=== PATIENT | female | born 1980 | race Caucasian/White ===

== ENCOUNTER 2021-03-21 05:12 | Inpatient (IN) | payer BC, SELFPAY ==
[2021-03-21] VITALS (150 sets, daily range): BP systolic 67–137; BP diastolic 40–99; PULSE 58–170; RESP 22; TEMP 36.6–37.7; O2SAT 95–100
[2021-03-21 06:08] LABS: Basophils Percent Auto 0.3 % (0.2-1.2); Eosinophils Absolute Auto 0.2 K/mm3 (0-0.3); Hematocrit 38.3 % (37.0-47.0); Hemoglobin 12.8 g/dL (12.0-15.0); Immature Granulocyte Absolute 0.05 K/mm3 (0.00-0.031); Immature Granulocyte Percent A 0.5 % (0-0.5); Lymphocytes Absolute Auto 2.42 K/mm3 (0.9-3.2); Lymphocytes Percent Auto 22.9 % (18.3-44.2); Mean Corpuscular HGB Conc 33.4 g/dl (32-36); Mean Corpuscular Hemoglobin 30.6 pg (26-34); Mean Corpuscular Volume 91.6 fl (80-100); Mean Platelet Volume 9.8 fl (7.4-10.4); Monocytes Absolute Auto 0.6 K/mm3 (0.1-0.6); Monocytes Percent Auto 5.2 % (2.6-8.5); Neutrophils Absolute Auto 7.3 K/mm3 (1.3-6.7); Neutrophils Percent Auto 69.1 % (45.5-73.1); Platelet Count Result 308 k/mm3 (150-375); Red Blood Count 4.18 M/mm3 (4.2-5.4); Red Cell Distribution Width 12.5 % (11.5-14.5); White Blood Count 10.6 K/mm3 (4.5-10.0)
--- NOTE | 2021-03-21 06:26 | P.PNAN_ITS ---
Anes - Eval Pre Procedure Procedure: labor epidural Date/Time: 03/21/21 06:26 Surgeon: savanah Preop Diagnosis: pain during labor Pre Op Diagnosis: IOL Patient Data Age: 40 Gender: F Height: 1.68 m Weight: 100 kg Last Vital Signs Pulse 79 03/21/21 05:42 BP 122/66 03/21/21 05:42 Allergies Allergy/AdvReac Type Severity Reaction Status Date / Time No Known Allergies Allergy Verified 02/27/21 14:41 Home Medications Medication Instructions Recorded Confirmed Type PNV cmb#95-ferrous fumarate-FA 1 tablet PO DAILY 02/27/21 02/27/21 History [] albuterol sulfate [Ventolin HFA] 2 puff INHALATION QID PRN 02/27/21 02/27/21 History budesonide-formoterol [Symbicort] 2 puff INHALATION DAILY 02/27/21 02/27/21 History Laboratory Tests 03/21/21 03/21/21 05:56 05:56 WBC 10.6 K/mm3 H K/mm3 (4.5-10.0) RBC 4.18 M/mm3 L M/mm3 (4.2-5.4) Hgb 12.8 g/dL g/dL (12.0-15.0) Hct 38.3 % % (37.0-47.0) MCV 91.6 fl fl (80-100) MCH 30.6 pg pg (26-34) MCHC 33.4 g/dl g/dl (32-36) RDW 12.5 % % (11.5-14.5) Plt Count 308 k/mm3 k/mm3 (150-375) MPV 9.8 fl fl (7.4-10.4) Immature Gran % (Auto) 0.5 % % (0-0.5) Neut % (Auto) 69.1 % % (45.5-73.1) Lymph % (Auto) 22.9 % % (18.3-44.2) [place] % (Auto) 5.2 % % (2.6-8.5) Eos % (Auto) 2.0 % % (0-4.4) Baso % (Auto) 0.3 % % (0.2-1.2) Lymph # (Auto) 2.42 K/mm3 K/mm3 (0.9-3.2) [place] # (Auto) 0.6 K/mm3 K/mm3 (0.1-0.6) Eos # (Auto) 0.2 K/mm3 K/mm3 (0-0.3) Baso # (Auto) 0.0 K/mm3 K/mm3 (0.0-0.1) Abs Immat Gran (auto) 0.05 K/mm3 H K/mm3 (0.00-0.031) Absolute Neuts (auto) 7.3 K/mm3 H K/mm3 (1.3-6.7) Absolute Nucleated RBC 0.0 K/mm3 K/mm3 (0.0-0.012) Nucleated RBC % 0.0 % % (0.0-0.2) RPR Pending Patient hx anesthesia problems: none Family hx anesthesia problems: none Results Review: All pre-operative results and documents have been reviewed as part of the pre-operative evaluation. [facility] Past Medical History Medical History (Updated 03/21/21 @ 06:27 by Katiana Polk CRNA) Asthma Family History Family History (Updated 02/27/21 @ 14:42 by Ellen Richard RN) Father Tachycardia Mother Corticobasal degeneration Social History Social History Smoking status: Never smoker Second hand tobacco smoke exposure: No Substance use: never Spiritual care concerns: No Exam Day of Procedure 03/21/21 06:26
[2021-03-21] MEDS: LACTATED RINGERS 1,000 ML 125 ML IV CONT ×2 (06:35→11:14)
[2021-03-21] MEDS: OXYTOCIN 30 UNITS/NS 500 ML 30 UNITS/500 ML BAG 6 UNITS IV CONT (06:40)
[2021-03-21 07:29] LABS: Rapid Plasma Reagin Non-Reactive (NonReactive)
--- NOTE | 2021-03-21 07:42 | PM.IMHP ---
H&P: HPI History of Present Illness Date/Time: 03/21/21 07:42 Chief Complaint: induction of labor Narrative: Raquel is a G1 at 39.3 here for elective induction of labor. complicated by AMA, anxiety, asthma, history of LEEP, and EIF seen on US. Review of Systems Review of Systems: All systems reviewed & are unremarkable except as noted in HPI and below PMFSH Past Medical History Medical History (Updated 03/21/21 @ 07:43 by Irene Murphy MD) Asthma Family History Family History (Updated 02/27/21 @ 14:42 by Ellen Richard RN) Father Tachycardia Mother Corticobasal degeneration Social History Social History Smoking status: Never smoker Second hand tobacco smoke exposure: No Substance use: never Spiritual care concerns: No Meds Home Medications and Allergies Home Medications Medication Instructions Recorded Confirmed Type PNV cmb#95-ferrous fumarate-FA 1 tablet PO DAILY 02/27/21 02/27/21 History [] albuterol sulfate [Ventolin HFA] 2 puff INHALATION QID PRN 02/27/21 02/27/21 History budesonide-formoterol [Symbicort] 2 puff INHALATION DAILY 02/27/21 02/27/21 History Allergies Allergy/AdvReac Type Severity Reaction Status Date / Time No Known Allergies Allergy Verified 02/27/21 14:41 Vital Signs Vital Signs - 24 hr 03/21/21 05:42 03/21/21 06:34 03/21/21 07:01 Pulse Rate 79 92 91 Blood Pressure 122/66 107/71 119/78 Exam Const: General: no acute distress Resp: Effort & Inspection: normal respiratory effort Auscultation: clear to auscultation bilaterally Cardio: Rate: regular rate Rhythm: regular rhythm GI: GI Palp: Yes Soft to palpation Extrem: General: normal to inspection H&P: Results Labs Labs: Short CBC 03/21/21 Range/Units 05:56 WBC 10.6 H (4.5-10.0) K/mm3 Hgb 12.8 (12.0-15.0) g/dL Hct 38.3 (37.0-47.0) % Plt Count 308 (150-375) k/mm3 Assessment and Plan Assessment and plan (1) AMA (advanced maternal age) primigravida 35+: Code(s): O09.519 - Supervision of elderly primigravida, unspecified trimester Status: Acute Additional Plan Here for induction of labor-pitocin. AROM done- /-2 thin meconium GBS neg FHT category 1
[2021-03-21] MEDS: PHENYLEPHRINE 1,000 MCG/10 ML SYRINGE 100 MCG IV PUSH (12:05)
[2021-03-21] MEDS: LACTATED RINGERS 1,000 ML 999 ML IV CONT (12:05)
[2021-03-21] MEDS: OXYTOCIN 30 UNITS/NS 500 ML 30 UNITS/500 ML BAG 125 UNITS IV CONT (17:00)
--- NOTE | 2021-03-21 17:13 | PM.OBPRVD ---
OB - Delivery Note Procedure Delivery date: 03/21/21 Procedure: normal spontaneous vaginal delivery events: Labor Induction Intrapartal events: None Induction method: AROM and per pitocin protocol Delivery monitor: external FHT and external uterine Route of delivery: Laceration Description: Vaginal - 3rd Degree Delivery repair: vicryl Quantitative Blood Loss (ml): 700 (from laceration while repairing the 3rd degree) Anesthesia type: Epidural Disposition: floor Narrative: With adequate expulsive efforts by the mother, the baby's head was delivered OA. The baby's anterior shoulder was delivered under the pubic symphysis without difficulty. The posterior shoulder and the rest of the baby delivered without difficulty. The infant was placed on the mothers chest and suctioned and stimulated. The cord was clamped and cut after 30 seconds. Mother and baby both stable. The placenta delivered spontaneously and the third degree laceration was repaired in layers, first approximating the sphincter before repairing the second degree. [place] Baby Date of : 03/21/21 Time of : 16:29 Weeks of gestation at delivery: 39 Infant gender: Female presentation: vertex Placenta delivery description: Spontaneous cord vessel description: 3 Vessels and Delayed Cord Clamping score one minute: 8 score five minutes: 9
[2021-03-21] MEDS: IBUPROFEN 600 MG TABLET PO (19:59)
--- NOTE | 2021-03-21 22:23 | PC.NURSE ---
Patient transferred to post room #290 via w/c. Support person, Mic, present. Oriented to unit, room, information board, rooming in, admission packet and security measures. Patient verbalizes understanding.
--- NOTE | 2021-03-21 23:45 | PC.NURSE ---
Mother has shallow/flat nipples that retract with positioning. Attempted to assist with latching infant at 2300 with no success with and without the use of a nipple shield. Infant showing no feeding cues. Hand expression resulted in no visible colostrum at this time after several minutes on each breast. Infant had not successfully latched since and infant blood glucose checked after last attempt. 2330 infant blood sugar= 72. Mother instructed that pumping initiation will occur if next feeding is also unsuccessful. Mother has a plan that does not include giving formula at this time.
[2021-03-22] MEDS: LANOLIN (LANSINOH) 7.5 GM CREAM 1 APPLIC TOPICAL (01:47)
[2021-03-22 02:00] VITALS: BP 107/64; PULSE 84; RESP 18; TEMP 36.4; O2SAT 98
[2021-03-22] MEDS: IBUPROFEN 600 MG TABLET PO ×3 (02:20→14:51)
[2021-03-22] MEDS: HYDROcodone/acetaminophen (*CRX) 5-325 MG TABLET 1 TAB PO ×5 (02:21→19:36)
[2021-03-22 05:10] VITALS: BP 101/57; PULSE 84; RESP 16; TEMP 36.9; O2SAT 97
[2021-03-22 05:43] LABS: Hematocrit 25.5 % (37.0-47.0); Hemoglobin 8.7 g/dL (12.0-15.0)
--- NOTE | 2021-03-22 07:49 | PM.OBPNVD ---
OB - PN: Subj Subjective Date/time seen: 03/22/21 07:49 [place] baby status: doing well Narrative: Struggling with and working with . Very sore and swollen, pain near rectum. Hasn't had ice on it since very early this morning. OB - PN: Obj Data Labs CBC & Chem 7: 03/22/21 05:20 Labs: Laboratory Results - last 24 hr 03/22/21 05:20 Hgb 8.7 L D Hct 25.5 L OB - PN A/P Assessment and Plan (1) , delivered: Code(s): O80 - Encounter for full-term uncomplicated delivery Status: Acute (2) Anxiety: Code(s): F41.9 - Anxiety disorder, unspecified Status: Acute (3) Third degree perineal laceration: Code(s): O70.20 - Third degree perineal laceration during delivery, unspecified Status: Acute (4) Anemia: Code(s): D64.9 - Anemia, unspecified Status: Acute Plan day: 1 Plan: routine care Comments: IV iron x1 today consistently ice, scheduled ibuprofen, norco prn trousseau consultant involved scheduled stool softeners Time Spent With Patient Time: Total time spent is greater than 50% in coordination of care (as documented) at patient's floor/unit and/or counseling patient: Time with patient: less than 15 minutes Exam Narrative: NAD abdomen soft, nontender, fundus firm below the umbilicus Extremities nontender, 1+ edema
[2021-03-22 08:00] VITALS: BP 109/52; PULSE 78; RESP 14; TEMP 36.7; O2SAT 98
[2021-03-22] MEDS: DOCUSATE SODIUM 100 MG CAPSULE PO ×2 (08:37→13:31)
[2021-03-22] MEDS: MULTIVIT/MIN/PREN/FOL AC/IRON TABLET 1 TAB PO (08:37)
[2021-03-22] MEDS: SERTRALINE HCL 50 MG TABLET PO (11:23)
[2021-03-22 12:00] VITALS: BP 97/53; PULSE 83; TEMP 36.4; O2SAT 99
--- NOTE | 2021-03-22 12:14 | PCRCNOTE ---
Window of time for administration has passed. See next scheduled administration.
--- NOTE | 2021-03-22 12:40 | WPDANLDPN2 ---
Anes-Prog Note L&D Date/Time: 03/22/21 12:40 Comfortable throughout: labor and delivery Neuraxial method: epidural Epidural/Spinal procedure site: clean & non-tender Neuro status: Neuro function grossly intact. Cardiovascular status: normal Respiratory status: normal Airway patency: baseline Mental status: baseline Post-Op hydration status: normal Vital Signs: Last Vital Signs Temp 98.5 F 03/22/21 05:10 Pulse 84 03/22/21 05:10 Resp 16 03/22/21 05:10 BP 101/57 L 03/22/21 05:10 Pulse Ox 97 03/22/21 05:10 Pain score (VAS): /10 I/O: Intake & Output 03/21/21 03/22/21 03/22/21 23:59 07:59 15:59 Intake Total 1450 1300 Output Total 1590 650 Balance -140 650 Post-procedural complaints: none Patient feedback: Patient satisfied with anesthetic care.
[2021-03-22 13:11] VITALS: PULSE 83; RESP 14; O2SAT 99
--- NOTE | 2021-03-22 15:37 | PC.NURSE ---
0742 - Consulted with patient and discussed mom desires of how she would like to feed her baby. Mom is tearful and recently received pain medication for 3 degree lac after a vaginal delivery. Mom is hesitant to move any part of her body and when she does she grimaces and is tearful. Reviewed feeding cues, frequencies, duration of feedings, feeding elimination flow sheet, and signs of adequate intake. Mom request semi-reclined position for attempt to breastfeed infant. Reviewed positioning/alignment, holding breast and asymmetrical latch on with handout as reference. Assisted mom with infant to breast. Infant is unable to latch. Mom is reluctant to move her arms to hold to breast and is uncomfortable. Bilateral breast have Peau d' orange with flat nipples. Mom agrees to attempt side-lying position. Provider at bedside. Assisted with infant to breast, does not open with wide gape and does not latch. Reviewed positioning/alignment, holding breast and asymmetrical latch on. Reviewed signs of a correct latch, effective nursing and suck swallow ratio. Nipple care reviewed. Discussed mothers pumping schedule and she has no concerns at this time. Instructed mother to call out for RN assistance if she is unable to latch for feeding, she has discomfort with nursing. Instructed feeding should be initiated three hours from start of last feeding or if feeding cues are noted before. Reviewed mom and baby guide for a resource. Mother voiced understanding of information shared. Reported to primary RN. 1100 - Primary RN reported assisting pt with baby to breast/pumping and supplementing. Mom express minimal colostrum and placed it into infants mouth. [facility] Fruit Packer Face And Fill recommended supplementation. 1400 - Assessed flanges for pumping. Pumping pressure will be turned down for moms comfort. Right breast will have 27mm flange and left will have 24mm flange at this time. Reviewed with parents and Reported to RN that after 1-2 min of pumping the breast, assess for discomfort, blanching or any other concerns. If needed move up to 30mm flange and reduce pumping pressure for moms relief. Plan of care for the night is to pump at 1800, 2200 and once during the night. Reviewed applying Lansinoh to area outside/around areola (darker area around nipple) before pumping. Instructed patient if she places anything on the nipples make sure hands are cleaned 20 sec with soap and water to reduce chance for infection. Consulted with Julianne RIVERA IBCLC via phone call. Parents verbalize understanding of information. Reported to primary RN.
--- NOTE | 2021-03-22 19:27 | PC.NURSE ---
[phone] mother expresses desire for help with pumping and breast feeding. mother is tearful and visibly upset. I assisted mother first with correct body positioning in bed as she was in an uncomfortable position 1/2 side lying, 1/2 supine. We applied breast pump flanges with Lanolin applied to help reduce friction. Discussed with mother and father correct positioning of flanges and discussed pump functioning and settings with both. At approximately 10 minutes of pumping areola was noted to be drawing into flange, rubbing of tissue noted and mother expressed pain with pumping. Pump turned off, flanges removed. Swelling and blanching noted on right nipple. Mother desires to attempt to put to breast. I explained nipple shield placement and assisted mother to place nipple shield to left nipple. Infant latched in cross cradle position but was latched shallowly, efforts were made to reposition infant to obtain a deeper latch. Infant made occasional draws on nipple tissue but did not give sustained effort. a\Attempt was approximately 10-15 minutes. Mother winced and expressed pain and states baby is biting .Discussed with mother and father the need for baby to have calories and hydration. I offered to check another blood sugar if they desired or, if they desired, they could give baby a supplemental bottle of formula as suggested by the concrete handler. Mother and father discussed this between them and decision made for father to supplement the baby with 15-20cc of Similac. Discussed above with product safety consultant. Mother exhibits and expresses openly a high degree of anxiety. Reassurances and emotional support given.
[2021-03-22 19:40] VITALS: BP 115/83; PULSE 76; RESP 16; TEMP 37; O2SAT 99
--- NOTE | 2021-03-22 19:45 | PC.NURSE ---
1400 Mother pumping with assistance of webmethods consultant. Father giving baby supplemental bottle.
--- NOTE | 2021-03-22 20:04 | PCRCNOTE ---
Pt refused our inhalers. She has her own that she will use as necessary. Pt was advised to let the nurse know if she changes her mind and would like to a hospital inhaler.
[2021-03-23] MEDS: IBUPROFEN 600 MG TABLET PO ×2 (02:16→08:29)
[2021-03-23] MEDS: HYDROcodone/acetaminophen (*CRX) 5-325 MG TABLET 1 TAB PO ×3 (02:17→12:38)
[2021-03-23 08:05] VITALS: BP 121/72; PULSE 77; RESP 18; TEMP 36.6; O2SAT 95
--- NOTE | 2021-03-23 08:16 | P.PNOB_ITS ---
OB - PN: Subj Subjective Date/time seen: 03/23/21 08:16 Patient comments: no complaints and pain well controlled baby status: NICU [place] feeding status: pumping and bottle feeding OB - PN: Obj Data Labs CBC & Chem 7: 03/22/21 05:20 OB - PN A/P Plan day: 2 Plan: routine care and discharge home (F/U in 4 weeks) Time Spent With Patient Time: Total time spent is greater than 50% in coordination of care (as documented) at patient's floor/unit and/or counseling patient: Time with patient: less than 15 minutes Review of Systems Review of Systems: All systems reviewed & are unremarkable except as noted in HPI and below Exam Narrative: Fundus firm and vaginal flow controlled. No lower ext redness, warmth, or edema. Negative homans. Labial edema resolved. Sutures appear intact. Const: General: comfortable Chest: Breast/axilla inspection: normal inspection of the breasts Resp: Effort & Inspection: normal respiratory effort Cardio: Rate: regular rate GI: GI Palp: Yes Soft to palpation Psych: Appearance: grossly normal Affect: normal affect Attitude: cooperative Thought content: Yes Normal thought content present Judgement: Good judgement present (Psych)
--- NOTE | 2021-03-23 08:26 | PC.NURSE ---
5080 - Consulted with parents to assess how the night time went. Baby is being transferred this morning. Mom's requests for supplies are met and she is going to check on in the nursery. Parents encouraged to call for assistance when needed. Parents voiced understanding.
[2021-03-23] MEDS: SERTRALINE HCL 50 MG TABLET PO (08:28)
[2021-03-23] MEDS: DOCUSATE SODIUM 100 MG CAPSULE PO ×2 (08:28→12:38)
[2021-03-23] MEDS: POLYSACCHARIDE IRON COMPLEX 150 MG CAPSULE PO (08:28)
[2021-03-23] MEDS: MULTIVIT/MIN/PREN/FOL AC/IRON TABLET 1 TAB PO (08:29)
--- NOTE | 2021-03-23 11:13 | PC.NURSE ---
Patient to view the discharge video Mother & Baby Care, The First Two Weeks online. Patient was given the opportunity and encouraged to ask questions. Patient verbalized understanding of information shared and has been given the mother/baby guide for home reference.
--- NOTE | 2021-03-23 13:32 | PC.NURSE ---
1100 - 1220 has been transferred [facility]. Discussed breast pump care and usage, pumping schedule, nipple care, and collection and storage of breast milk assisted with the mom and baby guide. Encouraged acts-sz-[id number], breast massage and hand expression to stimulate supply. Reviewed teaching of hand expression with teaching tools. RN assessed patient for correct flange size, placement and draw yesterday and pt doesn't have any questions at this time. Patient verbalizes and demonstrates understanding of instructions. Reviewed community resources and out patient support in the Mom/Baby guide. Mom states she is working with Adarsh MSN, IBCLC in the community. Mother gave suggestions to improve care and questions were answered. Mother has no further questions at this time. Reported to primary RN.
--- NOTE | 2021-03-31 08:19 | PM.OBDSVD ---
DS: Admitting Diagnosis Discharge Date 03/23/21 Admitting Diagnosis Labor OB - DS: Summary OB Procedures : None OB Procedures Intrapartum: Spontaneous Vag Delivery OB Procedures: : None Time Spent with Patient Time attestation: Total time spent providing and/or coordinating discharge services: Discharge Plan Discharge Attending physician on discharge: Irene Murphy Consulting providers: Diana Salas Discharging Clinician: Diana Salas Patient Disposition: Home, Self-Care Activity: pelvic rest Diet: as tolerated Discharge Instructions: Education: Mom and Baby Guide Given to: Mother Follow-Up: Call your delivering provider's office for an appointment to be seen in: 4 Weeks Mom should come to the [facility] for the follow-up appointment. Appointment Date/Time: March 24, 2021 at 10:00 am What to expect at your follow-up visit: Physical Assessment Call [phone] if you are unable to keep your appointment time. BREAST CARE: * Wear a snug supportive bra. * For engorgement discomfort: Breast Feeding: * Apply warm moist washcloths * Express milk as needed to relieve engorgement * Wear loose clothing Bottle Feeding: * May apply ice packs * For sore nipples: * Identify correct latch-on and flange size for breast pump * Apply warm moist washcloths before and after nursing * Air dry nipples after nursing * May apply Lansinoh cream to nipples EPISIOTOMY/PERINEAL CARE: * Until bleeding stops, use your selin bottle after urinating * Change your pad frequently throughout the day * You may take sitz baths several times a day (fill your bathtub with warm water and soak for 20 minutes.) Do NOT bathe in the water * No tub baths until seen by your physician - You may shower ACTIVITY: * Rest as much as possible. * Do not exercise or lift anything heavier than your baby (such as laundry or other children.) * Avoid stairs or driving as much as possible. * Do not put anything into the vagina. No douching, tampons, or sexual activity until seen by physician. NOTIFY PHYSICIAN IF YOU HAVE ANY QUESTIONS OR IF ANY OF THE FOLLOWING SYMPTOMS OCCUR: * If your episiotomy or incision becomes red, swollen, or more painful than what you have experienced in the hospital. * If your vaginal bleeding becomes foul smelling. * If your vaginal bleeding becomes more heavy than a period or if your bleeding changes from pink to bright red. However, you may pass an occasional walnut-sized clot once or twice for the first week . * If you experience a sharp, shooting pain in you calves. * If you discover a hard, reddened area on your breast or if you experience flu-like symptoms. DIET: * Eat regular, well-balanced meals. * Drink plenty of fluids daily. If , drink to thirst. Patient Instructions: Antibiotic Form Stand Alone Forms: General Discharge Information Follow-up/Referrals: Irene Murphy MD [Physician] - Discharge Medications: New docusate sodium 100 mg Capsule 100 mg PO TID Qty: 90 RF: 0 hydrocodone-acetaminophen 5-325 mg tablet 1 tablet PO Q6H PRN (Reason: pain) Qty: 20 RF: 0 polysaccharide iron complex 150 mg iron Capsule 150 mg PO BIDWM Qty: 60 RF: 0 sertraline [Zoloft] 50 mg Tablet 50 mg PO QAM Qty: 30 RF: 0 ibuprofen 600 mg Tablet 600 mg PO Q6H PRN (Reason: Cramping) Qty: 20 RF: 0 Continued albuterol sulfate [Ventolin HFA] 90 mcg/actuation Hfa Aerosol Inhaler 2 puff INHALATION QID PRN (Reason: Wheezing) RF: 0 budesonide-formoterol [Symbicort] 80-4.5 mcg/actuation Hfa Aerosol Inhaler 2 puff INHALATION DAILY RF: 0 PNV cmb#95-ferrous fumarate-FA [] 28 mg iron- 800 mcg Tablet 1 tablet PO DAILY RF: 0 Date of admission: 03/21/21 05:12 Primary Care Provider: Karli,[place] Sky Admitting Provide
== END 2021-03-23 13:19 | disposition home or self-care (01) | DRG 768 ==
LOC: ANHLDR 05:27 → ANHOB2 22:24
PROVIDERS: Admitting Provider Obstetrics & Gynecology; PCP Family Medicine; Visit Provider Obstetrics & Gynecology
DX: O77.0 Labor and delivery complicated by meconium in amniotic fluid (principal); Z37.0 Single live birth; O70.20 Third degree perineal laceration during delivery, unspecified; O99.344 Other mental disorders complicating childbirth; F41.9 Anxiety disorder, unspecified; O99.02 Anemia complicating childbirth; D64.9 Anemia, unspecified; O76 Abnormality in fetal heart rate and rhythm complicating labor and delivery; Z3A.39 39 weeks gestation of pregnancy; O99.52 Diseases of the respiratory system complicating childbirth; J45.909 Unspecified asthma, uncomplicated
CPT/HCPCS: 36415; 85014; 85018; 85025; 86592; 86850; 86900; 86901; A9270; J2370; J2590; J2795; J7120